=== PATIENT | male | born 1955 | race African-American/Black ===

== ENCOUNTER 2018-07-08 21:17 | Emergency (ER) | payer OTHER ==
[~2018-07-08] VITALS: Ht 180.3 cm; Wt 100.0 kg
[2018-07-08] MEDS ORDERED: SODIUM CHLORIDE 0.9% 1,000ML IVBOLUS ONE (21:30)
[2018-07-08] MEDS ORDERED: SODIUM CHLORIDE FLUSH 10ML SYR IVF ONE (21:30)
[2018-07-08 21:51] LABS: BASOPHILS # (AUTO) 0.03 x10^3/uL (0-0.1); BASOPHILS % (AUTO) 1 % (0-1); EOSINOPHILS # (AUTO) 0.12 x10^3/uL (0-0.4); EOSINOPHILS % (AUTO) 3 % (1-7); LYMPHOCYTES % (AUTO) 47 % (22-44); MD NO; MEAN CORPUSCULAR HEMOGLOBIN 28.7 pg (27.5-34.5); MEAN CORPUSCULAR HGB CONC 32.8 g/dL (33.2-36.2); MEAN CORPUSCULAR VOLUME 87.4 fL (81-97); MEAN PLATELET VOLUME 9.9 fL (7.4-10.4); MONOCYTES % (AUTO) 12 % (2-9); NEUTROPHILS # (AUTO) 1.49 x10^3/uL (1.8-6.8); NEUTROPHILS % (AUTO) 37 % (42-75); PLATELET COUNT 154 x10^3/uL (130-400); RED BLOOD COUNT 5.23 x10^6/uL (4.38-5.82); RED CELL DISTRIBUTION WIDTH 14.4 % (9.4-14.8)
[2018-07-08] MEDS ORDERED: PLEASE ENTER ALLERGIES MC SCH (22:00)
[2018-07-08] MEDS ORDERED: PLEASE ENTER HEIGHT AND WEIGHT MC SCH (22:00)
[2018-07-08 22:01] LABS: ALANINE AMINOTRANSFERASE 19 U/L (12-78); ALBUMIN 3.1 g/dL (3.4-5.0); ANION GAP 5 mmol/L (5-15); CALCIUM 8.1 mg/dL (8.5-10.1); CHLORIDE 108 mmol/L (98-107)
[2018-07-08 22:06] LABS: ALKALINE PHOSPHATASE 67 U/L (45-117); BILIRUBIN,TOTAL 0.8 mg/dL (0.2-1.0); CREATININE 1.16 mg/dL (0.7-1.3); T4 (THYROXINE) 12.5 mcg/dL (4.5-12.1); TROPONIN I < 0.015 ng/mL (0.000-0.045)
[2018-07-08 22:57] VITALS: BP 118/91
[2018-07-08 22:59] LABS: MICROSCOPIC NOT IND
[2018-07-08 23:05] LABS: CULTURE INDICATED? NO
== END 2018-07-08 23:03 | disposition home or self-care (01) ==
LOC: ED 21:26
DX: I95.0 Idiopathic hypotension (principal); R53.1 Weakness; Z02.89 Encounter for other administrative examinations
CPT/HCPCS: 36415; 71045; 80053; 81003; 83735; 83880; 84436; 84443; 84484; 85025; 93005; 99285

== ENCOUNTER 2018-07-13 01:41 | Inpatient (IN) | payer OTHER ==
[~2018-07-13] VITALS: Ht 177.8 cm; Wt 105.1 kg
[2018-07-13] MEDS ORDERED: SODIUM CHLORIDE FLUSH 10ML SYR IVF ONE (02:30)
[2018-07-13] MEDS ORDERED: SODIUM CHLORIDE 0.9% 1,000ML IVBOLUS ONE (02:30)
[2018-07-13 02:35] LABS: BASOPHILS # (AUTO) 0.02 x10^3/uL (0-0.1); BASOPHILS % (AUTO) 0 % (0-1); EOSINOPHILS # (AUTO) 0.12 x10^3/uL (0-0.4); EOSINOPHILS % (AUTO) 3 % (1-7); LYMPHOCYTES # (AUTO) 1.93 x10^3/uL (1-3.4); LYMPHOCYTES % (AUTO) 41 % (22-44); MD NO; MEAN CORPUSCULAR HGB CONC 32.3 g/dL (33.2-36.2); MEAN CORPUSCULAR VOLUME 86.5 fL (81-97); MEAN PLATELET VOLUME 10.8 fL (7.4-10.4); MONOCYTES # (AUTO) 0.42 x10^3/uL (0.2-0.8); MONOCYTES % (AUTO) 9 % (2-9); NEUTROPHILS # (AUTO) 2.23 x10^3/uL (1.8-6.8); NEUTROPHILS % (AUTO) 47 % (42-75); PLATELET COUNT 195 x10^3/uL (130-400); RED BLOOD COUNT 5.42 x10^6/uL (4.38-5.82); RED CELL DISTRIBUTION WIDTH 14.3 % (9.4-14.8)
[2018-07-13 02:41] LABS: ALANINE AMINOTRANSFERASE 22 U/L (12-78); ALBUMIN 3.3 g/dL (3.4-5.0); ANION GAP 10 mmol/L (5-15); CALCIUM 8.5 mg/dL (8.5-10.1); CHLORIDE 107 mmol/L (98-107); CREATININE 1.18 mg/dL (0.7-1.3)
[2018-07-13 02:45] LABS: ALKALINE PHOSPHATASE 72 U/L (45-117); BILIRUBIN,TOTAL 0.6 mg/dL (0.2-1.0); T4 (THYROXINE) 13.4 mcg/dL (4.5-12.1); TOTAL PROTEIN 7.4 g/dL (6.4-8.2); TROPONIN I < 0.015 ng/mL (0.000-0.045)
[2018-07-13 02:51] LABS: INTERNATIONAL NORMALIZED RATIO 1.04 (0.93-1.1); PROTHROMBIN TIME 10.7 Seconds (9.6-11.5)
[2018-07-13 03:53] LABS: MICROSCOPIC NOT IND
[2018-07-13 03:55] LABS: CULTURE INDICATED? NO
[2018-07-13] MEDS ORDERED: POLYETHYLENE GLYCOL 17 GM PACKET PO PRN (04:00)
[2018-07-13] MEDS ORDERED: AMLO2.5T PO (04:45)
[2018-07-13] MEDS ORDERED: SERT25TA3 PO (04:45)
[2018-07-13] MEDS ORDERED: NPH,100V5 SQ-INSULIN ×2 (04:45)
[2018-07-13] MEDS ORDERED: [UNRECOGNIZED DRUG - CODE] EXT (04:45)
[2018-07-13] MEDS ORDERED: CHLO50TA6 PO (04:45)
[2018-07-13] MEDS ORDERED: LOSA25TA5 PO (04:45)
[2018-07-13 05:03] VITALS: BP_SYST 106; BP_SYST 107; BP_SYST 143; BP_DIAS 70; BP_DIAS 71; BP_DIAS 92
[2018-07-13] MEDS: SODIUM CHLORIDE 0.9% 1,000 ML IV SCH ×2 (05:43→16:14)
[2018-07-13] MEDS: ACETAMINOPHEN 325 MG TABLET PO PRN (05:51)
[2018-07-13 08:08] VITALS: BP 152/97
[2018-07-13 08:27] VITALS: BP 141/89
[2018-07-13 08:29] VITALS: BP_SYST 106; BP_SYST 109; BP_DIAS 73; BP_DIAS 76
[2018-07-13] MEDS ORDERED: VITS A & D OINT 5 GM PKT EXT PRN (11:30)
[2018-07-13] MEDS: SERTRALINE 50MG TABLET PO SCH (11:58)
[2018-07-13] MEDS: INSULIN LISPRO 100 UNITS/ML, PEN SQ-INSULIN SCH ×3 (12:12→20:11)
[2018-07-13] MEDS: INSULIN NPH HUMAN 100 UNIT/ML, 3ML VIAL SQ-INSULIN SCH ×2 (12:13→20:10)
[2018-07-13 12:55] LABS: FREE T4 (FREE THYROXINE) 1.23 ng/dL (0.76-1.46)
[2018-07-13 14:30] VITALS: BP 153/98
[2018-07-13 18:49] VITALS: BP 152/88
[2018-07-14] VITALS (9 sets, daily range): BP systolic 112–174; BP diastolic 76–110
[2018-07-14] MEDS: SODIUM CHLORIDE 0.9% 1,000 ML IV SCH ×2 (01:43→11:57)
[2018-07-14] MEDS: INSULIN LISPRO 100 UNITS/ML, PEN SQ-INSULIN SCH ×4 (07:00→20:16)
[2018-07-14] MEDS: SERTRALINE 50MG TABLET PO SCH (08:22)
[2018-07-14] MEDS: INSULIN NPH HUMAN 100 UNIT/ML, 3ML VIAL SQ-INSULIN SCH ×2 (08:22→20:16)
[2018-07-14] MEDS ORDERED: PANT20TA3 PO (09:14)
[2018-07-14] MEDS ORDERED: ERGOCALCIFEROL 50,000 UNIT CAPSULE PO SCH (12:30)
[2018-07-14] MEDS ORDERED: LOSARTAN 25MG TABLET PO SCH (12:30)
[2018-07-14] MEDS: FUROSEMIDE 20 MG TABLET PO SCH (12:44)
[2018-07-14] MEDS: ACETAMINOPHEN 325 MG TABLET PO PRN (12:46)
[2018-07-14] MEDS ORDERED: NITROGLYCERIN 0.4 MG BOTTLE (25 TABS) SL ONE (19:50)
[2018-07-14] MEDS ORDERED: NITROGLYCERIN 0.4 MG/SPRAY SL PRN (20:00)
[2018-07-14] MEDS ORDERED: NITROGLYCERIN 0.4 MG BOTTLE (25 TABS) SL PRN (20:00)
[2018-07-14] MEDS: CARVEDILOL 3.125 MG TABLET PO SCH (20:35)
[2018-07-14 21:07] LABS: TROPONIN I < 0.015 ng/mL (0.000-0.045)
[2018-07-15] VITALS (8 sets, daily range): BP systolic 100–167; BP diastolic 71–103
[2018-07-15] MEDS: CARVEDILOL 3.125 MG TABLET PO SCH (05:08)
[2018-07-15 05:24] LABS: ANION GAP 8 mmol/L (5-15); CALCIUM 8.2 mg/dL (8.5-10.1); CHLORIDE 105 mmol/L (98-107); CREATININE 0.91 mg/dL (0.7-1.3)
[2018-07-15] MEDS: ACETAMINOPHEN 325 MG TABLET PO PRN (06:26)
[2018-07-15] MEDS ORDERED: PANTOPRAZOLE 20MG TABLET PO SCH (07:30)
[2018-07-15] MEDS: INSULIN NPH HUMAN 100 UNIT/ML, 3ML VIAL SQ-INSULIN SCH (08:08)
[2018-07-15] MEDS: INSULIN LISPRO 100 UNITS/ML, PEN SQ-INSULIN SCH ×2 (08:08→12:07)
[2018-07-15] MEDS ORDERED: LOSARTAN 25MG TABLET ONE (08:36)
[2018-07-15] MEDS: FUROSEMIDE 20 MG TABLET PO SCH (08:39)
[2018-07-15] MEDS: SERTRALINE 50MG TABLET PO SCH (08:39)
[2018-07-15] MEDS ORDERED: LOSARTAN 25MG TABLET PO SCH (09:00)
[2018-07-15] MEDS ORDERED: CARV3.1212 PO (11:19)
[2018-07-15] MEDS ORDERED: FURO20TA3 PO (11:19)
[2018-07-15] MEDS ORDERED: NITR0.4T SL (11:19)
[2018-07-15] MEDS ORDERED: SERT50TA5 PO (11:19)
[2018-07-15] MEDS ORDERED: NPH,100V SQ-INSULIN ×2 (11:19)
[2018-07-15] MEDS ORDERED: NITR12SP2 SL (11:19)
[2018-07-15] MEDS ORDERED: PANT20TA3 PO (11:19)
[2018-07-15] MEDS ORDERED: ERGO500017 PO (11:19)
[2018-07-15] MEDS ORDERED: INSU100I11 SQ-INSULIN (11:19)
[2018-07-15] MEDS ORDERED: LOSA25TA2 PO (11:19)
[2018-07-15] MEDS ORDERED: POTA20TA6 PO (11:22)
== END 2018-07-15 15:35 | disposition home or self-care (01) | DRG 312 ==
LOC: ED 01:48 → UNDOADMIN 03:34 → EDIP 03:34 → 5SO 05:17
PROVIDERS: ADMIT Hospitalist; ATTEND Hospitalist
DX: R55 Syncope and collapse (principal); E11.9 Type 2 diabetes mellitus without complications; I11.0 Hypertensive heart disease with heart failure; I25.10 Atherosclerotic heart disease of native coronary artery without angina pectoris; R32 Unspecified urinary incontinence; S06.0X0A Concussion without loss of consciousness, initial encounter; X58.XXXA Exposure to other specified factors, initial encounter; Y93.89 Activity, other specified; Y92.89 Other specified places as the place of occurrence of the external cause; Y99.8 Other external cause status; Z83.3 Family history of diabetes mellitus; Z95.0 Presence of cardiac pacemaker; I50.9 Heart failure, unspecified; Z88.8 Allergy status to other drugs, medicaments and biological substances
CPT/HCPCS: 36415; 70450; 71045; 72125; 80048; 80053; 81003; 82306; 82533; 82607; 82962; 83735; 83880; 84436; 84439; 84443; 84481; 84484; 85025; 85610; 85730; 87040; 93005; 93306; 96360; 96361; 99285; J1815; J7030

== ENCOUNTER 2018-07-25 02:31 | Emergency (ER) | payer MEDICARE, OTHER ==
[~2018-07-25] VITALS: Ht 177.8 cm; Wt 101.8 kg
[~2018-07-25 02:31] MED LIST: AMLO2.5T3 PO; CARV3.1212 PO; CHLO50TA6 PO; ERGO500017 PO; FURO20TA3 PO; INSU100I11 SQ-INSULIN; LOSA25TA2 PO; LOSA25TA6 PO; NITR0.4T SL; NITR12SP2 SL; NPH,100V SQ-INSULIN; NPH,100V5 SQ-INSULIN; PANT20TA3 PO; POTA20TA6 PO; SERT25TA3 PO; SERT50TA5 PO; [UNRECOGNIZED DRUG - CODE] EXT
[2018-07-25] MEDS ORDERED: FAMOTIDINE 20 MG TABLET ONE (02:52)
[2018-07-25] MEDS ORDERED: MAALOX/HYOSCYAMINE/LIDOCAINE 45 ML BTL ONE (02:52)
[2018-07-25] MEDS ORDERED: PROMETHAZINE 25 MG/ML, 1ML ONE (02:52)
[2018-07-25] MEDS ORDERED: FAMOTIDINE 20 MG TABLET PO ONE (03:00)
[2018-07-25] MEDS ORDERED: MAALOX/HYOSCYAMINE/LIDOCAINE 45 ML BTL PO ONE (03:00)
[2018-07-25] MEDS ORDERED: PROMETHAZINE 25 MG/ML, 1ML IM ONE (03:00)
[2018-07-25 04:07] VITALS: BP 129/78
== END 2018-07-25 04:15 | disposition home or self-care (01) ==
LOC: ED 03:15
DX: K59.00 Constipation, unspecified (principal); R06.6 Hiccough; I10 Essential (primary) hypertension; E11.9 Type 2 diabetes mellitus without complications
CPT/HCPCS: 74021; 96372; 99284; J2550

== ENCOUNTER 2018-08-13 03:59 | Emergency (ER) | payer MEDICARE ==
[~2018-08-13] VITALS: Ht 177.8 cm; Wt 100.5 kg
[2018-08-13] MEDS ORDERED: MAALOX/HYOSCYAMINE/LIDOCAINE 45 ML BTL ONE (04:41)
[2018-08-13] MEDS ORDERED: MAALOX/HYOSCYAMINE/LIDOCAINE 45 ML BTL PO ONE (05:00)
[2018-08-13] MEDS ORDERED: DIAZEPAM 5 MG TABLET ONE (06:04)
[2018-08-13] MEDS ORDERED: DIAZEPAM 5 MG TABLET PO ONE (06:30)
[2018-08-13 06:54] VITALS: BP 156/97
== END 2018-08-13 08:13 | disposition home or self-care (01) ==
LOC: ED 05:00
DX: R06.6 Hiccough (principal); E11.9 Type 2 diabetes mellitus without complications; I10 Essential (primary) hypertension
CPT/HCPCS: 93005; 99284

== ENCOUNTER 2018-10-18 10:59 | Emergency (ER) | payer MEDICARE ==
[~2018-10-18] VITALS: Ht 177.8 cm; Wt 98.7 kg
[2018-10-18] MEDS ORDERED: MAALOX/HYOSCYAMINE/LIDOCAINE 45 ML BTL ONE (11:48)
[2018-10-18] MEDS ORDERED: MAALOX/HYOSCYAMINE/LIDOCAINE 45 ML BTL PO ONE (12:00)
[2018-10-18] MEDS ORDERED: chlorPROMAZINE 25 MG/ML, 1ML IM ONE (12:00)
[2018-10-18 12:17] LABS: BASOPHILS # (AUTO) 0.17 x10^3/uL (0-0.1); BASOPHILS % (AUTO) 4 % (0-1); EOSINOPHILS # (AUTO) 0.03 x10^3/uL (0-0.4); EOSINOPHILS % (AUTO) 1 % (1-7); LYMPHOCYTES # (AUTO) 2.02 x10^3/uL (1-3.4); LYMPHOCYTES % (AUTO) 42 % (22-44); MD NO; MEAN CORPUSCULAR HGB CONC 32.6 g/dL (33.2-36.2); MONOCYTES % (AUTO) 17 % (2-9); NEUTROPHILS # (AUTO) 1.77 x10^3/uL (1.8-6.8); NEUTROPHILS % (AUTO) 37 % (42-75); PLATELET COUNT 202 x10^3/uL (130-400); RED BLOOD COUNT 5.15 x10^6/uL (4.38-5.82); RED CELL DISTRIBUTION WIDTH 14.4 % (9.4-14.8)
[2018-10-18 12:28] LABS: ANION GAP 9 mmol/L (5-15); CALCIUM 7.6 mg/dL (8.5-10.1); CHLORIDE 104 mmol/L (98-107)
[2018-10-18 12:31] LABS: ALANINE AMINOTRANSFERASE 21 U/L (12-78); ALKALINE PHOSPHATASE 87 U/L (45-117); BILIRUBIN,TOTAL 0.7 mg/dL (0.2-1.0); TOTAL PROTEIN 7.6 g/dL (6.4-8.2)
[2018-10-18 14:16] VITALS: BP 148/93
== END 2018-10-18 14:29 | disposition home or self-care (01) ==
LOC: ED 12:48
DX: R06.6 Hiccough (principal); E11.9 Type 2 diabetes mellitus without complications; I10 Essential (primary) hypertension
CPT/HCPCS: 36415; 74176; 80053; 85025; 96372; 99284; J3230

== ENCOUNTER 2018-12-20 07:47 | Inpatient (IN) | payer OTHER, MEDICARE ==
[~2018-12-20] VITALS: Ht 180.3 cm; Wt 98.8 kg
[~2018-12-20 07:47] MED LIST changes: -AMLO2.5T3 PO; +AMLO2.5T5 PO; +LOSA25TA25 PO; -LOSA25TA6 PO; +SERT50TA28 PO; -SERT50TA5 PO
[2018-12-20] MEDS ORDERED: AMIODARONE 900 MG in DEXTROSE 5% 482 ML IV PRN (07:49)
--- NOTE | 2018-12-20 07:49 | NUR ---
AMIODARONE 150MG IVP GIVEN EMERGENTLY AT THE BEDSIDE ORDER OF DR. XIONG FOR V.TACH.
[2018-12-20] MEDS ORDERED: SODIUM CHLORIDE FLUSH 10ML SYR IVF ONE ×2 (08:00→09:30)
[2018-12-20] MEDS ORDERED: AMIODARONE 50 MG/ML, 3ML IVPush ONE ×2 (08:00→09:30)
[2018-12-20] MEDS ORDERED: AMIODARONE 150 MG in DEXTROSE 5% 100 ML IV ONE ×2 (08:00→09:30)
[2018-12-20] MEDS ORDERED: MAGNESIUM SULFATE PMX 2GM/50ML 50 ML IVPB ONE (08:00)
[2018-12-20] MEDS ORDERED: FILTER 0.22 MICRON IV PRN (08:00)
[2018-12-20 08:02] LABS: BASOPHILS # (AUTO) 0.04 x10^3/uL (0-0.1); BASOPHILS % (AUTO) 1 % (0-1); EOSINOPHILS # (AUTO) 0.19 x10^3/uL (0-0.4); EOSINOPHILS % (AUTO) 3 % (1-7); LYMPHOCYTES # (AUTO) 3.34 x10^3/uL (1-3.4); LYMPHOCYTES % (AUTO) 51 % (22-44); MD NO; MEAN CORPUSCULAR HEMOGLOBIN 27.1 pg (27.5-34.5); MEAN CORPUSCULAR HGB CONC 31.9 g/dL (33.2-36.2); MEAN CORPUSCULAR VOLUME 85.1 fL (81-97); MEAN PLATELET VOLUME 10.2 fL (7.4-10.4); MONOCYTES # (AUTO) 0.69 x10^3/uL (0.2-0.8); MONOCYTES % (AUTO) 11 % (2-9); NEUTROPHILS # (AUTO) 2.27 x10^3/uL (1.8-6.8); NEUTROPHILS % (AUTO) 35 % (42-75); PLATELET COUNT 157 x10^3/uL (130-400); RED BLOOD COUNT 6.12 x10^6/uL (4.38-5.82); RED CELL DISTRIBUTION WIDTH 13.6 % (9.4-14.8)
--- NOTE | 2018-12-20 08:02 | NUR ---
MAGNESIUM SULFATE DRIP STARTED IN LEFT EJ.
[2018-12-20 08:09] LABS: INTERNATIONAL NORMALIZED RATIO 1.08 (0.93-1.1); PROTHROMBIN TIME 11.4 Seconds (9.6-11.5)
[2018-12-20 08:11] LABS: ALANINE AMINOTRANSFERASE 21 U/L (12-78); ALBUMIN 3.6 g/dL (3.4-5.0); ANION GAP 8 mmol/L (5-15); CALCIUM 9.4 mg/dL (8.5-10.1); CHLORIDE 99 mmol/L (98-107); CREATININE 1.65 mg/dL (0.7-1.3)
[2018-12-20 08:16] LABS: ALKALINE PHOSPHATASE 87 U/L (45-117); BILIRUBIN,TOTAL 0.9 mg/dL (0.2-1.0); TOTAL PROTEIN 8.6 g/dL (6.4-8.2); TROPONIN I < 0.015 ng/mL (0.000-0.045)
--- NOTE | 2018-12-20 08:20 | NUR ---
SECOND PIV STARTED. AMIODARONE DRIP STARTED.
[2018-12-20] MEDS ORDERED: ATOR10TA PO (08:50)
[2018-12-20] MEDS ORDERED: AMLO10TA8 PO (08:51)
[2018-12-20] MEDS ORDERED: GLIP2.5T3 PO (08:52)
[2018-12-20] MEDS ORDERED: HYDR25TA6 PO (08:53)
[2018-12-20] MEDS ORDERED: PANT40TA5 PO (08:54)
--- NOTE | 2018-12-20 09:04 | NUR ---
PATIENT HAD SUDDEN RHYTHM CHANGE BACK INTO V TACH. PAIENT ALERT AND ORIENTED WITH THE V TACH BUT HAS WEAKENED PULSES. PT ALSO C/O SOME CHEST PAIN WITH THIS EPISODE OF VTACH, WHICH IS THE FIRST TIME HE HAS HAD CHEST PAIN TODAY. DR. XIONG NOTIFIED. EKG TAKEN AND GIVEN TO DR. XIONG.
[2018-12-20] MEDS ORDERED: AMIODARONE 50 MG/ML, 3ML ONE (09:27)
--- NOTE | 2018-12-20 09:32 | NUR ---
ANOTHER 150MG AMIODARONE IVP GIVEN. PATIENT CONVERTED TO NSR APPROX 2 MINUTES AFTER DOSE GIVEN. WILL NOTIFY DR. XIONG UPON RETURN TO THE DEPARTMENT. VS STABLE.
--- NOTE | 2018-12-20 09:39 | NUR ---
LATEST EKG SHOWING PATIENT IN NSR GIVEN TO DR. XIONG.
--- NOTE | 2018-12-20 09:44 | NUR ---
2GM MAG SULFATE INFUSION COMPLETE. PATIENT RESTING WITH NO COMPLAINTS AND REMAINS IN NSR. DEPUTIES AT BEDSIDE. CALL BUTTON WITHIN REACH. SIDE RAILS UP X2 FOR SAFETY.
[2018-12-20] MEDS ORDERED: ONDANSETRON ODT 4 MG PO PRN (10:00)
[2018-12-20] MEDS ORDERED: morphine SULFATE 10 MG/ML, 1ML IVPush PRN (10:00)
[2018-12-20] MEDS ORDERED: LABETALOL 5MG/ML, 20ML IV PRN (10:00)
[2018-12-20] MEDS ORDERED: DOCUSATE 100 MG CAPSULE PO PRN (10:00)
[2018-12-20] MEDS ORDERED: POLYETHYLENE GLYCOL 17 GM PACKET PO PRN (10:00)
[2018-12-20] MEDS ORDERED: ONDANSETRON 2MG/ML, 2ML IVPush PRN (10:00)
--- NOTE | 2018-12-20 10:09 | NUR ---
SBAR TELEPHONE HAND-OFF REPORT GIVEN TO RN JANELL. PATIENT READY TO GO TO HOSPITAL ROOM.
[2018-12-20 10:26] LABS: CHOL/HDL RATIO 1.7; FREE T4 (FREE THYROXINE) 1.58 ng/dL (0.76-1.46); LDL/HDL RATIO 0.4 (0.5-3.0)
[2018-12-20 10:48] LABS: HEMOGLOBIN A1C 8.5 % (4.2-6.3)
[2018-12-20 11:08] VITALS: BP 131/89
[2018-12-20] MEDS ORDERED: DEXTROSE 4 GM TAB.CHEW PO PRN (11:30)
[2018-12-20] MEDS ORDERED: DEXTROSE 50%, 50ML SYRINGE IVPush PRN (11:30)
[2018-12-20] MEDS ORDERED: GLUCAGON 1 MG IM PRN (11:30)
[2018-12-20] MEDS: PANTOPRAZOLE 40 MG IV IVPush SCH (12:14)
[2018-12-20 12:51] VITALS: BP 142/96
[2018-12-20 12:52] VITALS: BP 142/96
[2018-12-20] MEDS: FUROSEMIDE 20 MG/2 ML IV SCH (17:24)
[2018-12-20] MEDS: INSULIN LISPRO 100 UNITS/ML, PEN SQ-INSULIN SCH ×2 (18:15→21:57)
[2018-12-20 20:22] VITALS: BP 104/71
[2018-12-20] MEDS: ENOXAPARIN 40 MG/0.4 ML SQ SCH (21:56)
[2018-12-20] MEDS: SODIUM CHLORIDE FLUSH 10ML SYR IVF SCH (21:57)
[2018-12-20] MEDS: ATORVASTATIN 10 MG TABLET PO SCH (21:57)
[2018-12-21 01:43] VITALS: BP 135/90
[2018-12-21 05:11] LABS: BASOPHILS # (AUTO) 0.02 x10^3/uL (0-0.1); BASOPHILS % (AUTO) 0 % (0-1); EOSINOPHILS # (AUTO) 0.17 x10^3/uL (0-0.4); EOSINOPHILS % (AUTO) 3 % (1-7); LYMPHOCYTES # (AUTO) 2.34 x10^3/uL (1-3.4); LYMPHOCYTES % (AUTO) 44 % (22-44); MD NO; MEAN CORPUSCULAR HEMOGLOBIN 27.8 pg (27.5-34.5); MEAN CORPUSCULAR HGB CONC 32.4 g/dL (33.2-36.2); MEAN CORPUSCULAR VOLUME 85.9 fL (81-97); MEAN PLATELET VOLUME 10.1 fL (7.4-10.4); MONOCYTES # (AUTO) 0.63 x10^3/uL (0.2-0.8); MONOCYTES % (AUTO) 12 % (2-9); NEUTROPHILS % (AUTO) 41 % (42-75); PLATELET COUNT 144 x10^3/uL (130-400); RED BLOOD COUNT 5.79 x10^6/uL (4.38-5.82); RED CELL DISTRIBUTION WIDTH 13.8 % (9.4-14.8)
[2018-12-21 05:21] LABS: ALANINE AMINOTRANSFERASE 19 U/L (12-78); ALBUMIN 3.1 g/dL (3.4-5.0); ANION GAP 7 mmol/L (5-15); CALCIUM 8.5 mg/dL (8.5-10.1); CHLORIDE 101 mmol/L (98-107); CREATININE 1.54 mg/dL (0.7-1.3)
[2018-12-21 05:31] LABS: ALKALINE PHOSPHATASE 75 U/L (45-117); BILIRUBIN,TOTAL 0.7 mg/dL (0.2-1.0); THYROID STIMULATING HORMONE 0.169 mIU/L (0.358-3.740); TOTAL PROTEIN 7.5 g/dL (6.4-8.2)
[2018-12-21] MEDS: FUROSEMIDE 20 MG/2 ML IV SCH ×2 (07:30→20:13)
[2018-12-21] MEDS ORDERED: AMIODARONE 900 MG in DEXTROSE 5% 482 ML IV PRN (07:49)
[2018-12-21] MEDS: AMLODIPINE 5 MG TABLET PO SCH (08:05)
[2018-12-21] MEDS: INSULIN LISPRO 100 UNITS/ML, PEN SQ-INSULIN SCH ×4 (08:05→21:11)
[2018-12-21] MEDS: PANTOPRAZOLE 40 MG IV IVPush SCH (08:06)
[2018-12-21] MEDS: SODIUM CHLORIDE FLUSH 10ML SYR IVF SCH ×2 (09:00→22:13)
[2018-12-21 09:08] VITALS: BP 128/90
[2018-12-21 09:29] LABS: TROPONIN I < 0.015 ng/mL (0.000-0.045)
[2018-12-21] MEDS: AMIODARONE 200 MG TABLET PO SCH ×2 (12:27→22:13)
[2018-12-21 12:41] VITALS: BP 127/86
[2018-12-21 15:17] VITALS: BP 127/86
[2018-12-21 19:10] VITALS: BP 115/74
[2018-12-21] MEDS: ATORVASTATIN 10 MG TABLET PO SCH (22:13)
[2018-12-21] MEDS: ENOXAPARIN 40 MG/0.4 ML SQ SCH (22:13)
[2018-12-22 01:01] VITALS: BP 138/91
[2018-12-22 04:56] LABS: BASOPHILS # (AUTO) 0.04 x10^3/uL (0-0.1); BASOPHILS % (AUTO) 1 % (0-1); EOSINOPHILS % (AUTO) 3 % (1-7); LYMPHOCYTES # (AUTO) 2.47 x10^3/uL (1-3.4); LYMPHOCYTES % (AUTO) 40 % (22-44); MD NO; MEAN CORPUSCULAR HEMOGLOBIN 27.8 pg (27.5-34.5); MEAN CORPUSCULAR HGB CONC 32.7 g/dL (33.2-36.2); MEAN CORPUSCULAR VOLUME 84.9 fL (81-97); MEAN PLATELET VOLUME 10.2 fL (7.4-10.4); MONOCYTES # (AUTO) 0.63 x10^3/uL (0.2-0.8); MONOCYTES % (AUTO) 10 % (2-9); NEUTROPHILS % (AUTO) 47 % (42-75); PLATELET COUNT 138 x10^3/uL (130-400); RED BLOOD COUNT 5.66 x10^6/uL (4.38-5.82); RED CELL DISTRIBUTION WIDTH 13.9 % (9.4-14.8)
[2018-12-22 05:00] LABS: ALBUMIN 3.3 g/dL (3.4-5.0); ANION GAP 7 mmol/L (5-15); CALCIUM 8.2 mg/dL (8.5-10.1); CHLORIDE 100 mmol/L (98-107)
[2018-12-22] MEDS: FUROSEMIDE 20 MG/2 ML IV SCH (08:15)
[2018-12-22] MEDS: AMLODIPINE 5 MG TABLET PO SCH (08:15)
[2018-12-22] MEDS: PANTOPROZOLE 40MG TABLET PO SCH (08:15)
[2018-12-22] MEDS: AMIODARONE 200 MG TABLET PO SCH ×2 (08:15→20:51)
[2018-12-22] MEDS: SODIUM CHLORIDE FLUSH 10ML SYR IVF SCH ×2 (08:16→20:52)
[2018-12-22] MEDS: INSULIN LISPRO 100 UNITS/ML, PEN SQ-INSULIN SCH ×5 (08:16→20:52)
[2018-12-22 08:20] VITALS: BP 116/74
[2018-12-22] MEDS ORDERED: ADENOSINE 6 MG/2 ML ONE (10:51)
[2018-12-22] MEDS ORDERED: BACLOFEN 10 MG TABLET PO PRN (11:30)
[2018-12-22] MEDS ORDERED: ADENOSINE 6 MG/2 ML IVPush ONE ×2 (11:30)
[2018-12-22] MEDS: POTASSIUM CHLORIDE 20 MEQ TAB.ER.PRT PO ONE ×2 (11:53→12:30)
[2018-12-22] MEDS: METOPROLOL SUCCINATE 25 MG TAB.ER.24H PO SCH ×2 (11:53→12:30)
[2018-12-22] MEDS: INSULIN GLARGINE 100 UNITS/ML, PEN SQ-INSULIN SCH ×2 (11:53→12:31)
[2018-12-22] MEDS ORDERED: NALOXONE 0.4 MG/ML, 1ML ONE ×2 (12:07→12:18)
[2018-12-22] MEDS ORDERED: NALOXONE 0.4 MG/ML, 1ML IVPush ONE ×2 (12:30)
[2018-12-22 12:53] LABS: BASOPHILS # (AUTO) 0.06 x10^3/uL (0-0.1); BASOPHILS % (AUTO) 2 % (0-1); EOSINOPHILS # (AUTO) 0.18 x10^3/uL (0-0.4); EOSINOPHILS % (AUTO) 5 % (1-7); LYMPHOCYTES # (AUTO) 1.86 x10^3/uL (1-3.4); LYMPHOCYTES % (AUTO) 45 % (22-44); MD NO; MEAN CORPUSCULAR HEMOGLOBIN 27.3 pg (27.5-34.5); MEAN CORPUSCULAR VOLUME 85.4 fL (81-97); MEAN PLATELET VOLUME 9.6 fL (7.4-10.4); MONOCYTES # (AUTO) 0.44 x10^3/uL (0.2-0.8); MONOCYTES % (AUTO) 11 % (2-9); NEUTROPHILS # (AUTO) 1.58 x10^3/uL (1.8-6.8); NEUTROPHILS % (AUTO) 38 % (42-75); PLATELET COUNT 124 x10^3/uL (130-400); RED BLOOD COUNT 5.19 x10^6/uL (4.38-5.82); RED CELL DISTRIBUTION WIDTH 14.1 % (9.4-14.8)
[2018-12-22] MEDS ORDERED: SODIUM CHLORIDE 0.9% 1,000ML IVBOLUS ONE (13:00)
[2018-12-22 13:09] LABS: ALANINE AMINOTRANSFERASE 15 U/L (12-78); ALBUMIN 2.8 g/dL (3.4-5.0); ANION GAP 5 mmol/L (5-15); CALCIUM 7.5 mg/dL (8.5-10.1); CHLORIDE 104 mmol/L (98-107); CREATININE 1.15 mg/dL (0.7-1.3)
[2018-12-22 13:14] LABS: ALKALINE PHOSPHATASE 65 U/L (45-117); BILIRUBIN,TOTAL 0.4 mg/dL (0.2-1.0); TOTAL PROTEIN 6.5 g/dL (6.4-8.2); TROPONIN I < 0.015 ng/mL (0.000-0.045)
[2018-12-22 14:50] VITALS: BP 116/79
[2018-12-22] MEDS ORDERED: POTASSIUM CHLORIDE 20 MEQ TAB.ER.PRT PO ONE ×2 (15:00→19:00)
[2018-12-22 16:39] VITALS: BP 113/82
[2018-12-22 18:53] VITALS: BP 103/69
[2018-12-22] MEDS: ATORVASTATIN 10 MG TABLET PO SCH (20:51)
[2018-12-22] MEDS: ENOXAPARIN 40 MG/0.4 ML SQ SCH (20:52)
[2018-12-23 01:13] VITALS: BP 115/71
[2018-12-23 03:50] LABS: AMPHETAMINE SCREEN, URINE Negative (Negative); BARBITURATE SCREEN, URINE Negative (Negative); BENZODIAZEPINE SCREEN, URINE Negative (Negative); CANNABINOID SCREEN, URINE Negative (Negative); COCAINE SCREEN, URINE Negative (Negative); METHADONE SCREEN, URINE Negative (Negative); OPIATE SCREEN, URINE Negative (Negative)
[2018-12-23 05:02] VITALS: BP 90/65
[2018-12-23 05:14] LABS: BASOPHILS # (AUTO) 0.02 x10^3/uL (0-0.1); BASOPHILS % (AUTO) 0 % (0-1); EOSINOPHILS # (AUTO) 0.19 x10^3/uL (0-0.4); EOSINOPHILS % (AUTO) 4 % (1-7); LYMPHOCYTES # (AUTO) 1.81 x10^3/uL (1-3.4); LYMPHOCYTES % (AUTO) 41 % (22-44); MD NO; MEAN CORPUSCULAR HGB CONC 32.9 g/dL (33.2-36.2); MEAN CORPUSCULAR VOLUME 85.3 fL (81-97); MEAN PLATELET VOLUME 10.4 fL (7.4-10.4); MONOCYTES # (AUTO) 0.51 x10^3/uL (0.2-0.8); MONOCYTES % (AUTO) 12 % (2-9); NEUTROPHILS # (AUTO) 1.85 x10^3/uL (1.8-6.8); NEUTROPHILS % (AUTO) 42 % (42-75); PLATELET COUNT 136 x10^3/uL (130-400); RED BLOOD COUNT 5.12 x10^6/uL (4.38-5.82); RED CELL DISTRIBUTION WIDTH 13.9 % (9.4-14.8)
[2018-12-23 05:18] LABS: ALANINE AMINOTRANSFERASE 17 U/L (12-78); ALBUMIN 2.9 g/dL (3.4-5.0); ANION GAP 6 mmol/L (5-15); CALCIUM 8.4 mg/dL (8.5-10.1); CHLORIDE 107 mmol/L (98-107); CREATININE 1.16 mg/dL (0.7-1.3)
[2018-12-23 05:20] LABS: ALKALINE PHOSPHATASE 69 U/L (45-117); BILIRUBIN,TOTAL 0.4 mg/dL (0.2-1.0); TOTAL PROTEIN 6.7 g/dL (6.4-8.2)
[2018-12-23] MEDS: INSULIN LISPRO 100 UNITS/ML, PEN SQ-INSULIN SCH ×3 (07:00→16:00)
[2018-12-23 07:01] VITALS: BP 119/82
[2018-12-23] MEDS: PANTOPROZOLE 40MG TABLET PO SCH (08:43)
[2018-12-23] MEDS: AMIODARONE 200 MG TABLET PO SCH (08:43)
[2018-12-23] MEDS: METOPROLOL SUCCINATE 25 MG TAB.ER.24H PO SCH (08:44)
[2018-12-23] MEDS: INSULIN GLARGINE 100 UNITS/ML, PEN SQ-INSULIN SCH (08:45)
[2018-12-23] MEDS: SODIUM CHLORIDE FLUSH 10ML SYR IVF SCH (08:45)
[2018-12-23] MEDS ORDERED: LOSARTAN 25MG TABLET PO SCH (09:00)
[2018-12-23] MEDS ORDERED: FUROSEMIDE 40 MG TABLET PO SCH (09:00)
[2018-12-23] MEDS ORDERED: SPIRONOLACTONE 25 MG TABLET PO SCH (09:00)
[2018-12-23 12:43] VITALS: BP 122/86
[2018-12-23] MEDS ORDERED: METO25TA91 PO (16:29)
[2018-12-23] MEDS ORDERED: SPIR25TA PO (16:29)
[2018-12-23] MEDS ORDERED: PANT40TA5 PO (16:29)
[2018-12-23] MEDS ORDERED: AMIO200T42 PO (16:29)
[2018-12-23] MEDS ORDERED: LOSA25TA25 PO (16:29)
[2018-12-23] MEDS ORDERED: FURO40TA6 PO (16:29)
== END 2018-12-23 18:40 | disposition home or self-care (01) | DRG 683 ==
LOC: ED 08:05 → EDIP 09:15 → 5SO 10:21
PROVIDERS: ADMIT Internal Medicine; ATTEND Internal Medicine
DX: N17.9 Acute kidney failure, unspecified (principal); I42.9 Cardiomyopathy, unspecified; I47.2 Ventricular tachycardia; I50.20 Unspecified systolic (congestive) heart failure; I47.1 Supraventricular tachycardia; I11.0 Hypertensive heart disease with heart failure; E78.5 Hyperlipidemia, unspecified; E11.9 Type 2 diabetes mellitus without complications; R06.6 Hiccough; E55.9 Vitamin D deficiency, unspecified; I25.10 Atherosclerotic heart disease of native coronary artery without angina pectoris; F10.20 Alcohol dependence, uncomplicated; I95.9 Hypotension, unspecified; I25.2 Old myocardial infarction; Z95.810 Presence of automatic (implantable) cardiac defibrillator; Z82.49 Family history of ischemic heart disease and other diseases of the circulatory system; Z86.73 Personal history of transient ischemic attack (TIA), and cerebral infarction without residual deficits; Z87.891 Personal history of nicotine dependence; Z88.6 Allergy status to analgesic agent
CPT/HCPCS: 36415; 36600; 70450; 71045; 76770; 80048; 80053; 80061; 80307; 82040; 82803; 82962; 83036; 83735; 83880; 84100; 84439; 84443; 84484; 85025; 85610; 85730; 93005; 96374; 99291; C8929; G0378; J0153; J1650; J2310; Q9957; C9113; J0282; J1815; J1940; J3475; J7030; J7060

== ENCOUNTER 2019-01-09 03:25 | Emergency (ER) | payer MEDICARE, OTHER ==
[~2019-01-09 03:25] MED LIST changes: +AMIO200T42 PO; +AMLO10TA8 PO; +ATOR10TA PO; +FURO40TA6 PO; +GLIP2.5T3 PO; +HYDR25TA6 PO; +METO25TA91 PO; +PANT40TA5 PO; +SPIR25TA PO
[2019-01-09] MEDS ORDERED: ASPIRIN 81 MG TABLET CHEW ONE (03:54)
[2019-01-09] MEDS ORDERED: MAALOX/HYOSCYAMINE/LIDOCAINE 45 ML BTL ONE (03:54)
[2019-01-09] MEDS ORDERED: ONDANSETRON ODT 4 MG ONE (03:54)
--- NOTE | 2019-01-09 04:16 | NUR ---
SEE DOWNTIME PAPER CHARTING.
[2019-01-09 04:39] LABS: BASOPHILS # (AUTO) 0.02 x10^3/uL (0-0.1); BASOPHILS % (AUTO) 1 % (0-1); EOSINOPHILS # (AUTO) 0.15 x10^3/uL (0-0.4); EOSINOPHILS % (AUTO) 3 % (1-7); LYMPHOCYTES # (AUTO) 1.57 x10^3/uL (1-3.4); LYMPHOCYTES % (AUTO) 33 % (22-44); MD NO; MEAN CORPUSCULAR HEMOGLOBIN 27.8 pg (27.5-34.5); MEAN CORPUSCULAR HGB CONC 32.5 g/dL (33.2-36.2); MEAN CORPUSCULAR VOLUME 85.7 fL (81-97); MEAN PLATELET VOLUME 8.8 fL (7.4-10.4); MONOCYTES % (AUTO) 11 % (2-9); NEUTROPHILS # (AUTO) 2.46 x10^3/uL (1.8-6.8); NEUTROPHILS % (AUTO) 52 % (42-75); PLATELET COUNT 199 x10^3/uL (130-400); RED CELL DISTRIBUTION WIDTH 14.2 % (9.4-14.8)
[2019-01-09 04:49] LABS: ANION GAP 7 mmol/L (5-15); CALCIUM 8.2 mg/dL (8.5-10.1); CHLORIDE 104 mmol/L (98-107); CREATININE 0.93 mg/dL (0.7-1.3)
[2019-01-09 04:53] LABS: TROPONIN I < 0.015 ng/mL (0.000-0.045)
[2019-01-09 05:19] VITALS: BP 149/104
--- NOTE | 2019-01-09 05:21 | NUR ---
PT GIVEN DC INSTRUCTIONS. PT AMB TO DC SITH STEADY GAIT. NO CP AT DC. NO ACUTE DISTRESS AT DC. TAXIVOUCHER GIVEN TO DC.
== END 2019-01-09 05:26 | disposition home or self-care (01) ==
LOC: ED 05:15
DX: R07.9 Chest pain, unspecified (principal); I25.10 Atherosclerotic heart disease of native coronary artery without angina pectoris; I11.0 Hypertensive heart disease with heart failure; I50.9 Heart failure, unspecified; E11.9 Type 2 diabetes mellitus without complications
CPT/HCPCS: 36415; 71045; 80048; 83880; 84484; 85025; 93005; 99284

== ENCOUNTER 2019-01-20 07:22 | Inpatient (IN) | payer MEDICARE, OTHER ==
[~2019-01-20] VITALS: Ht 180.3 cm; Wt 99.9 kg
[2019-01-20] MEDS ORDERED: ADENOSINE 6 MG/2 ML ONE (07:50)
--- NOTE | 2019-01-20 07:50 | NUR ---
Recieved report from BOWEN Coats. All questions answered. Pt placed on flight engineer performance qualified, NIBP, and continous pulse ox. PIV placed and PIV fluids infusing per ED MD verbal order and EMAR. career development specialist at bedside. Pt connected to [employer].
--- NOTE | 2019-01-20 07:52 | NUR ---
PIV meds infused per ED MD order and EMAR. Pt's heart rate is in the 90-95 bpm range and pt's pacemaker has taken over pacing heart rate. client technical professional at bedside doing repeat EKG. PIV fluids infusing per EMAR.
[2019-01-20] MEDS ORDERED: ADENOSINE 6 MG/2 ML IVPush ONE (08:00)
[2019-01-20] MEDS ORDERED: ASPIRIN 81 MG TABLET CHEW PO ONE (08:00)
[2019-01-20] MEDS ORDERED: SODIUM CHLORIDE 0.9% 1,000ML IVBOLUS ONE (08:00)
[2019-01-20] MEDS ORDERED: SODIUM CHLORIDE FLUSH 10ML SYR IVF ONE (08:00)
[2019-01-20] MEDS ORDERED: ASPIRIN 81 MG TABLET CHEW ONE (08:06)
[2019-01-20 08:46] LABS: ALBUMIN 3.1 g/dL (3.4-5.0); ANION GAP 8 mmol/L (5-15); CALCIUM 8.3 mg/dL (8.5-10.1); CHLORIDE 109 mmol/L (98-107)
[2019-01-20 08:49] LABS: TROPONIN I < 0.015 ng/mL (0.000-0.045)
[2019-01-20 08:55] LABS: BASOPHILS # (AUTO) 0.01 x10^3/uL (0-0.1); BASOPHILS % (AUTO) 0 % (0-1); EOSINOPHILS # (AUTO) 0.15 x10^3/uL (0-0.4); EOSINOPHILS % (AUTO) 4 % (1-7); LYMPHOCYTES # (AUTO) 1.61 x10^3/uL (1-3.4); LYMPHOCYTES % (AUTO) 39 % (22-44); MD NO; MEAN CORPUSCULAR HEMOGLOBIN 27.4 pg (27.5-34.5); MEAN CORPUSCULAR HGB CONC 32.2 g/dL (33.2-36.2); MEAN CORPUSCULAR VOLUME 85.1 fL (81-97); MEAN PLATELET VOLUME 8.6 fL (7.4-10.4); MONOCYTES # (AUTO) 0.46 x10^3/uL (0.2-0.8); MONOCYTES % (AUTO) 11 % (2-9); NEUTROPHILS # (AUTO) 1.88 x10^3/uL (1.8-6.8); NEUTROPHILS % (AUTO) 46 % (42-75); PLATELET COUNT 244 x10^3/uL (130-400); RED BLOOD COUNT 5.39 x10^6/uL (4.38-5.82); RED CELL DISTRIBUTION WIDTH 14.6 % (9.4-14.8)
[2019-01-20] MEDS ORDERED: LABETALOL 5 MG/ML SYRINGE IVPush PRN (10:00)
[2019-01-20] MEDS ORDERED: PANTOPRAZOLE 40 MG IV IVPush SCH (10:00)
[2019-01-20] MEDS ORDERED: ONDANSETRON 2MG/ML, 2ML IVPush PRN (10:00)
[2019-01-20] MEDS ORDERED: POLYETHYLENE GLYCOL 17 GM PACKET PO PRN (10:00)
[2019-01-20] MEDS ORDERED: ONDANSETRON ODT 4 MG PO PRN (10:00)
[2019-01-20] MEDS ORDERED: GLIP2.5T3 PO (10:12)
[2019-01-20] MEDS ORDERED: AMLO10TA8 PO (10:12)
[2019-01-20] MEDS ORDERED: ASPI-496 PO (10:12)
[2019-01-20] MEDS ORDERED: LOSA50TA14 PO (10:12)
--- NOTE | 2019-01-20 10:19 | NUR ---
Pt resting on gurney connected to all monitors. NADN. No needs expressed. All safety measures in place. Call light within reach.
[2019-01-20] MEDS ORDERED: GLUCAGON 1 MG IM PRN (10:30)
[2019-01-20] MEDS ORDERED: DEXTROSE 4 GM TAB.CHEW PO PRN (10:30)
[2019-01-20] MEDS ORDERED: DEXTROSE 50%, 50ML SYRINGE IVPush PRN (10:30)
[2019-01-20] MEDS: INSULIN GLARGINE 100 UNITS/ML, PEN SQ-INSULIN SCH (10:30)
[2019-01-20 10:36] LABS: FREE T4 (FREE THYROXINE) 1.46 ng/dL (0.76-1.46); THYROID STIMULATING HORMONE 3.21 mIU/L (0.358-3.740)
[2019-01-20] MEDS ORDERED: ENOXAPARIN 40 MG/0.4 ML ONE (10:53)
[2019-01-20] MEDS ORDERED: PANTOPRAZOLE 40 MG IV ONE (10:54)
[2019-01-20] MEDS: INSULIN LISPRO 100 UNITS/ML, PEN SQ-INSULIN SCH ×3 (11:00→21:25)
[2019-01-20] MEDS: ENOXAPARIN 40 MG/0.4 ML SQ SCH (11:14)
[2019-01-20] MEDS ORDERED: INSULIN REGULAR 100 UNITS/ML, 3ML VIAL ONE (11:54)
[2019-01-20 12:30] LABS: TROPONIN I < 0.015 ng/mL (0.000-0.045)
--- NOTE | 2019-01-20 12:59 | NUR ---
Provided report to BOWEN Barcenas. All questions answered. Pt ready to transfer to floor from ED.
--- NOTE | 2019-01-20 14:29 | NUR ---
Pt transported to floor from ED and left with all personal belongings.
[2019-01-20] MEDS: FUROSEMIDE 20 MG/2 ML IV SCH (16:36)
[2019-01-20 16:48] LABS: TROPONIN I < 0.015 ng/mL (0.000-0.045)
[2019-01-20 20:17] VITALS: BP 111/76
[2019-01-20 20:18] VITALS: BP 116/79
[2019-01-20 20:19] VITALS: BP 79/50
[2019-01-20] MEDS: SODIUM CHLORIDE FLUSH 10ML SYR IVF SCH (21:22)
[2019-01-20] MEDS: ATORVASTATIN 10 MG TABLET PO SCH (21:25)
[2019-01-20] MEDS: AMIODARONE 200 MG TABLET PO SCH (21:25)
[2019-01-21] VITALS (10 sets, daily range): BP systolic 83–137; BP diastolic 62–86
[2019-01-21] MEDS ORDERED: METOPROLOL SUCCINATE 25 MG TAB.ER.24H PO SCH (06:00)
[2019-01-21] MEDS: METOPROLOL SUCCINATE 25 MG TAB.ER.24H PO SCH ×3 (06:06→21:01)
[2019-01-21 06:07] LABS: BASOPHILS # (AUTO) 0.03 x10^3/uL (0-0.1); BASOPHILS % (AUTO) 1 % (0-1); EOSINOPHILS # (AUTO) 0.18 x10^3/uL (0-0.4); EOSINOPHILS % (AUTO) 4 % (1-7); LYMPHOCYTES # (AUTO) 2.29 x10^3/uL (1-3.4); LYMPHOCYTES % (AUTO) 48 % (22-44); MD NO; MEAN CORPUSCULAR HEMOGLOBIN 28.1 pg (27.5-34.5); MEAN CORPUSCULAR HGB CONC 32.8 g/dL (33.2-36.2); MEAN CORPUSCULAR VOLUME 85.5 fL (81-97); MEAN PLATELET VOLUME 8.7 fL (7.4-10.4); MONOCYTES # (AUTO) 0.44 x10^3/uL (0.2-0.8); MONOCYTES % (AUTO) 9 % (2-9); NEUTROPHILS # (AUTO) 1.84 x10^3/uL (1.8-6.8); NEUTROPHILS % (AUTO) 38 % (42-75); PLATELET COUNT 239 x10^3/uL (130-400); RED BLOOD COUNT 5.12 x10^6/uL (4.38-5.82); RED CELL DISTRIBUTION WIDTH 14.8 % (9.4-14.8)
[2019-01-21 06:19] LABS: ALBUMIN 2.9 g/dL (3.4-5.0); ANION GAP 6 mmol/L (5-15); CHLORIDE 107 mmol/L (98-107)
[2019-01-21 06:24] LABS: ALANINE AMINOTRANSFERASE 17 U/L (12-78); ALKALINE PHOSPHATASE 73 U/L (45-117); BILIRUBIN,TOTAL 0.6 mg/dL (0.2-1.0); CREATININE 1.11 mg/dL (0.7-1.3); TOTAL PROTEIN 6.9 g/dL (6.4-8.2)
[2019-01-21] MEDS: INSULIN LISPRO 100 UNITS/ML, PEN SQ-INSULIN SCH ×4 (07:00→21:16)
[2019-01-21] MEDS: FUROSEMIDE 20 MG/2 ML IV SCH (07:30)
[2019-01-21 08:29] LABS: TROPONIN I < 0.015 ng/mL (0.000-0.045)
[2019-01-21] MEDS ORDERED: REGADENOSON 0.4 MG/5 ML SYRINGE ONE (08:59)
[2019-01-21] MEDS: SENNA/DOCUSATE TABLET PO SCH (12:52)
[2019-01-21] MEDS: AMIODARONE 200 MG TABLET PO SCH ×2 (12:52→21:01)
[2019-01-21] MEDS: PANTOPROZOLE 40MG TABLET PO SCH (12:52)
[2019-01-21] MEDS: SODIUM CHLORIDE FLUSH 10ML SYR IVF SCH ×2 (12:55→21:16)
[2019-01-21] MEDS: SPIRONOLACTONE 25 MG TABLET PO SCH (12:55)
[2019-01-21] MEDS: ENOXAPARIN 40 MG/0.4 ML SQ SCH (12:56)
[2019-01-21] MEDS: INSULIN GLARGINE 100 UNITS/ML, PEN SQ-INSULIN SCH (13:52)
[2019-01-21] MEDS: ATORVASTATIN 10 MG TABLET PO SCH (21:01)
[2019-01-22] MEDS ORDERED: SPIR25TA5 PO (00:09)
[2019-01-22] MEDS ORDERED: METO25TA91 PO ×2 (00:09→12:44)
[2019-01-22] MEDS ORDERED: AMIO100T4 PO (00:09)
[2019-01-22] MEDS ORDERED: FURO20TA3 PO ×2 (00:09→12:43)
[2019-01-22 02:33] VITALS: BP 116/81
[2019-01-22 03:31] LABS: AMPHETAMINE SCREEN, URINE Negative (Negative); BARBITURATE SCREEN, URINE Negative (Negative); BENZODIAZEPINE SCREEN, URINE Negative (Negative); CANNABINOID SCREEN, URINE Negative (Negative); COCAINE SCREEN, URINE Negative (Negative); METHADONE SCREEN, URINE Negative (Negative); OPIATE SCREEN, URINE Negative (Negative)
[2019-01-22 05:38] LABS: BASOPHILS # (AUTO) 0.03 x10^3/uL (0-0.1); BASOPHILS % (AUTO) 1 % (0-1); EOSINOPHILS # (AUTO) 0.22 x10^3/uL (0-0.4); EOSINOPHILS % (AUTO) 5 % (1-7); LYMPHOCYTES # (AUTO) 2.35 x10^3/uL (1-3.4); LYMPHOCYTES % (AUTO) 48 % (22-44); MD NO; MEAN CORPUSCULAR HEMOGLOBIN 27.7 pg (27.5-34.5); MEAN CORPUSCULAR HGB CONC 32.4 g/dL (33.2-36.2); MEAN CORPUSCULAR VOLUME 85.5 fL (81-97); MEAN PLATELET VOLUME 8.9 fL (7.4-10.4); MONOCYTES # (AUTO) 0.46 x10^3/uL (0.2-0.8); MONOCYTES % (AUTO) 9 % (2-9); NEUTROPHILS # (AUTO) 1.84 x10^3/uL (1.8-6.8); NEUTROPHILS % (AUTO) 38 % (42-75); PLATELET COUNT 228 x10^3/uL (130-400); RED BLOOD COUNT 5.07 x10^6/uL (4.38-5.82); RED CELL DISTRIBUTION WIDTH 14.5 % (9.4-14.8)
[2019-01-22 05:48] LABS: ALBUMIN 2.8 g/dL (3.4-5.0); ANION GAP 7 mmol/L (5-15); CALCIUM 7.9 mg/dL (8.5-10.1); CHLORIDE 107 mmol/L (98-107)
[2019-01-22 05:52] LABS: ALANINE AMINOTRANSFERASE 17 U/L (12-78); ALKALINE PHOSPHATASE 69 U/L (45-117); BILIRUBIN,TOTAL 0.5 mg/dL (0.2-1.0); CREATININE 1.11 mg/dL (0.7-1.3); TOTAL PROTEIN 6.6 g/dL (6.4-8.2)
[2019-01-22 07:46] VITALS: BP 129/84
[2019-01-22] MEDS: SENNA/DOCUSATE TABLET PO SCH (08:38)
[2019-01-22] MEDS: METOPROLOL SUCCINATE 25 MG TAB.ER.24H PO SCH (08:38)
[2019-01-22] MEDS: AMIODARONE 200 MG TABLET PO SCH (08:38)
[2019-01-22] MEDS: INSULIN GLARGINE 100 UNITS/ML, PEN SQ-INSULIN SCH (08:39)
[2019-01-22] MEDS: ENOXAPARIN 40 MG/0.4 ML SQ SCH (08:39)
[2019-01-22] MEDS: PANTOPROZOLE 40MG TABLET PO SCH (08:39)
[2019-01-22] MEDS: INSULIN LISPRO 100 UNITS/ML, PEN SQ-INSULIN SCH ×3 (08:40→16:00)
[2019-01-22] MEDS: SPIRONOLACTONE 25 MG TABLET PO SCH (08:46)
[2019-01-22] MEDS: SODIUM CHLORIDE FLUSH 10ML SYR IVF SCH (08:46)
[2019-01-22 11:30] VITALS: BP_SYST 116; BP_SYST 99; BP_DIAS 69; BP_DIAS 70; BP_DIAS 77
[2019-01-22] MEDS ORDERED: ACETAMINOPHEN 325 MG TABLET ONE (11:54)
[2019-01-22] MEDS ORDERED: ACETAMINOPHEN 325 MG TABLET PO PRN (12:00)
[2019-01-22] MEDS ORDERED: LOSA50TA14 PO (12:43)
[2019-01-22 13:00] VITALS: BP 115/80
== END 2019-01-22 18:16 | disposition home or self-care (01) | DRG 309 ==
LOC: ED 09:15 → EDIP 09:16 → ED 10:07 → 5SO 13:28
PROVIDERS: ADMIT Hospitalist; ATTEND Hospitalist
PROC: 5A2204Z Restoration of Cardiac Rhythm, Single (ICD-10-PCS; principal; 2019-01-20)
DX: I47.1 Supraventricular tachycardia (principal); E44.0 Moderate protein-calorie malnutrition; I42.9 Cardiomyopathy, unspecified; I50.30 Unspecified diastolic (congestive) heart failure; E11.65 Type 2 diabetes mellitus with hyperglycemia; E78.5 Hyperlipidemia, unspecified; N19 Unspecified kidney failure; I11.0 Hypertensive heart disease with heart failure; I95.9 Hypotension, unspecified; I25.10 Atherosclerotic heart disease of native coronary artery without angina pectoris; Z82.49 Family history of ischemic heart disease and other diseases of the circulatory system; Z86.73 Personal history of transient ischemic attack (TIA), and cerebral infarction without residual deficits; Z95.810 Presence of automatic (implantable) cardiac defibrillator; Z79.899 Other long term (current) drug therapy; Z79.82 Long term (current) use of aspirin; Z79.4 Long term (current) use of insulin; Z88.8 Allergy status to other drugs, medicaments and biological substances
CPT/HCPCS: 36415; 71045; 78452; 80048; 80053; 80307; 82040; 82962; 83735; 84100; 84439; 84443; 84484; 85025; 93005; 93017; 96372; 96374; 96375; 99291; G0378; J0153; J1650; J2785; A9502; C9113; C9898; J1815; J1940; J7030

== ENCOUNTER 2020-11-05 09:45 | Emergency (ER) | payer MEDICARE, OTHER ==
[~2020-11-05] VITALS: Ht 177.8 cm; Wt 110.0 kg
[~2020-11-05 09:45] MED LIST changes: +AMIO100T4 PO; +AMLO-211 PO; -AMLO10TA8 PO; +ASPI-496 PO; +LOSA50TA14 PO; -NITR0.4T SL; +NITR0.4T41 SL; +NITR12SP10 SL; -NITR12SP2 SL; -PANT20TA3 PO; +PANT20TA4 PO; -PANT40TA5 PO; +PANT40TA6 PO; +SPIR25TA5 PO
--- NOTE | 2020-11-05 10:20 | NUR ---
assumed care of pt. Sabra ONEAL at bedside for eval pt presents ambulatory from triage with SO c/o feeling weak and off balance. pt REYES without difficutly and has no facial droop. answers all questions and folows all commands. PERRLA. denies HERRERA or dizziness at this time. denies CP or SOB pt admits to using speed regularly and when asked if he drinks ETOH, he states "not like I used to". pt states that he has been "seeing worms" come out of his body when he is in bed or after a shower. pt SO at bedside states same and states that they have been staying in motels for the last week because they think that their home has mold. pt has no open wounds on his body upon inspection and no worms seen by this RN. pt has a small abrasion to the L side of his neck, no s/sx of infection
--- NOTE | 2020-11-05 10:30 | NUR ---
pt aware that urine sample needed. urinal at bedside
--- NOTE | 2020-11-05 11:16 | NUR ---
pt has not yet provided urine sample
[2020-11-05 11:22] LABS: BASOPHILS % (AUTO) 1 % (0-1); EOSINOPHILS % (AUTO) 4 % (1-7); LYMPHOCYTES % (AUTO) 30 % (22-44); MEAN CORPUSCULAR HEMOGLOBIN 28.6 pg (27.5-34.5); MEAN CORPUSCULAR HGB CONC 32.4 g/dL (33.2-36.2); MEAN PLATELET VOLUME 9.4 fL (7.4-10.4); MONOCYTES % (AUTO) 12 % (2-9); NEUTROPHILS % (AUTO) 54 % (42-75); PLATELET COUNT 148 x10^3/uL (130-400); RED BLOOD COUNT 5.17 x10^6/uL (4.38-5.82); RED CELL DISTRIBUTION WIDTH 14.2 % (9.4-14.8)
[2020-11-05 11:28] LABS: MD NO
[2020-11-05 11:30] LABS: ALANINE AMINOTRANSFERASE 30 U/L (12-78); ALBUMIN 3.3 g/dL (3.4-5.0); ANION GAP 3 mmol/L (5-15); CHLORIDE 106 mmol/L (98-107); CREATININE 1.15 mg/dL (0.7-1.3)
--- NOTE | 2020-11-05 11:30 | NUR ---
pt sleeping. easily aroused
[2020-11-05 11:32] LABS: ALKALINE PHOSPHATASE 86 U/L (45-117); BILIRUBIN,TOTAL 0.7 mg/dL (0.2-1.0); TOTAL PROTEIN 7.8 g/dL (6.4-8.2)
--- NOTE | 2020-11-05 11:35 | NUR ---
pt has been medicated. urine sample collected and sent
[2020-11-05 12:19] LABS: AMPHETAMINE SCREEN, URINE Positive (Negative); BARBITURATE SCREEN, URINE Negative (Negative); BENZODIAZEPINE SCREEN, URINE Negative (Negative); CANNABINOID SCREEN, URINE Negative (Negative); COCAINE SCREEN, URINE Negative (Negative); METHADONE SCREEN, URINE Negative (Negative); OPIATE SCREEN, URINE Negative (Negative)
--- NOTE | 2020-11-05 12:41 | NUR ---
Dr Valdez has been to bedside for receck. pt SO has been picking at her skin as wll as his with tweezers. pt SO has been repeatedly searching through supplies in the room and washing her feet int he sink and continually wiping his skin with we and dry paper towels pt has bene dozing intemitently. pt and SO nowwant o discuss mold in their home and how to test for it. pt has had no worms or bugs seen on his skin. pt is picking at his skin. pt continues to deny HERRERA dizziness or loss or change of vision. pt is hypertensive. no facila droop noted
[2020-11-05 12:46] VITALS: BP 189/115
--- NOTE | 2020-11-05 12:59 | NUR ---
repot to Casie WISEMAN for lunch
--- NOTE | 2020-11-05 13:15 | NUR ---
BREAK RN NOTE: DC ORDER RECEIVED. EDMD SAHM NOTIFIED LAST BP WAS 189/115, EDMD OK'D DC. WHEN THIS RN WENT TO GIVE PT DC PAPERWORK AND EDUCATION, PT NOT FOUND IN ROOM. PT NOT SEEN IN DEPARTMENT, LEFT WITHOUT DC PAPERWORK OR EDUCATION.
--- NOTE | 2020-11-05 13:41 | NUR ---
this pt was D/C by another RN
== END 2020-11-05 13:16 | disposition home or self-care (01) ==
LOC: ED 10:27
DX: E11.65 Type 2 diabetes mellitus with hyperglycemia (principal); I11.0 Hypertensive heart disease with heart failure; I50.9 Heart failure, unspecified; R53.1 Weakness; R53.83 Other fatigue
CPT/HCPCS: 36415; 80053; 80307; 85025; 93005; 99285

== ENCOUNTER 2021-05-31 08:40 | Emergency (ER) | payer OTHER ==
[~2021-05-31] VITALS: Ht 185.4 cm; Wt 105.0 kg
[~2021-05-31 08:40] MED LIST changes: +SERT-331 PO; -SERT25TA3 PO
[2021-05-31] MEDS ORDERED: EPINEPHRINE SYRINGE 0.1 MG/ML, 10ML ONE (08:51)
[2021-05-31] MEDS ORDERED: ADENOSINE 6 MG/2 ML ONE (08:51)
[2021-05-31 08:54] VITALS: BP 105/71
[2021-05-31] MEDS ORDERED: ADENOSINE 6 MG/2 ML IVPush ONE (09:00)
[2021-05-31] MEDS ORDERED: SODIUM CHLORIDE FLUSH 10ML SYR IVF ONE (09:00)
[2021-05-31] MEDS ORDERED: SODIUM CHLORIDE 0.9% 1,000ML IVBOLUS ONE (09:00)
--- NOTE | 2021-05-31 09:15 | NUR ---
REPORT FROM KIMBERLEE. PT WAS IN SVT W LOW BP, CONVERTED AFTER ADENOSINE TO NSR. BP APPROPIATE. PT NOW A&OX4. DENIES CP OR SOB. GIVEN WARM BLANKETS. PT UNCOOPERATIVE W RECTAL TEMP. ATTEMPTED ORAL, BUT PT ALSO UNCOOPERATIVE W THAT. LAB AT BEDSIDE. IV AND FLUIDS INFUSING. PT POOR HISTORIAN
--- NOTE | 2021-05-31 09:21 | NUR ---
PT REFUSING LABS. [facility]
[2021-05-31 09:34] LABS: BASOPHILS % (AUTO) 1 % (0-1); EOSINOPHILS % (AUTO) 2 % (1-7); LYMPHOCYTES % (AUTO) 44 % (22-44); MEAN CORPUSCULAR HEMOGLOBIN 28.6 pg (27.5-34.5); MEAN CORPUSCULAR HGB CONC 31.9 g/dL (33.2-36.2); MEAN PLATELET VOLUME 9.9 fL (7.4-10.4); MONOCYTES % (AUTO) 12 % (2-9); NEUTROPHILS % (AUTO) 42 % (42-75); PLATELET COUNT 155 x10^3/uL (130-400); RED BLOOD COUNT 5.46 x10^6/uL (4.38-5.82); RED CELL DISTRIBUTION WIDTH 14.7 % (9.4-14.8)
[2021-05-31 09:39] LABS: ALBUMIN 3.2 g/dL (3.4-5.0); ANION GAP 5 mmol/L (5-15); CALCIUM 8.7 mg/dL (8.5-10.1); CHLORIDE 111 mmol/L (98-107)
[2021-05-31 09:41] LABS: ALANINE AMINOTRANSFERASE 32 U/L (12-78); ALKALINE PHOSPHATASE 72 U/L (45-117); BILIRUBIN,TOTAL 0.7 mg/dL (0.2-1.0); CREATININE 1.55 mg/dL (0.7-1.3); TOTAL PROTEIN 7.4 g/dL (6.4-8.2); TROPONIN I < 0.015 ng/mL (0.000-0.045)
--- NOTE | 2021-05-31 10:03 | NUR ---
PAT REFUSING CT EXAM
--- NOTE | 2021-05-31 10:21 | NUR ---
pt refusing further care. AMA paper signed by pt, educated pt about further care. aware. pt dc w steady gait. piv removed
== END 2021-05-31 10:25 | disposition left against medical advice (07) ==
LOC: ED 10:22
DX: R41.82 Altered mental status, unspecified (principal); G30.0 Alzheimer's disease with early onset; F02.80 Dementia in other diseases classified elsewhere, unspecified severity, without behavioral disturbance, psychotic disturbance, mood disturbance, and anxiety; I47.1 Supraventricular tachycardia; E11.9 Type 2 diabetes mellitus without complications; I11.0 Hypertensive heart disease with heart failure; I50.9 Heart failure, unspecified; I25.10 Atherosclerotic heart disease of native coronary artery without angina pectoris; I95.9 Hypotension, unspecified
CPT/HCPCS: 36600; 71045; 80053; 80320; 83735; 83880; 84484; 85025; 93005; 96361; 96374; 99285; J0153; J7030; G0480

== ENCOUNTER 2021-06-21 13:53 | Emergency (ER) | payer OTHER ==
[~2021-06-21] VITALS: Ht 177.8 cm; Wt 100.0 kg
--- NOTE | 2021-06-21 14:03 | NUR ---
Reji pace in [facility] - 06/21/21 at 1428 by JARED TORIN BONILLA
[2021-06-21 14:09] VITALS: BP 97/66
--- NOTE | 2021-06-21 14:13 | NUR ---
CALLUM STAUFFER. SPOUSE STATES PT HAD AMS X30 MINUTES. PT A&OX4 NOW. FSBG 447, HX DM2, NOT TAKING MEDS. PT CONNECTED TO MONITORING. FALL PRECAUTIONS IN PLACE. CALL LIGHT IN REACH. PT SPOUSE AT BEDSIDE. REPORT TO PRIMARY RN, DENIS WISEMAN,
[2021-06-21] MEDS ORDERED: SODIUM CHLORIDE 0.9% 1,000ML IVBOLUS ONE (14:30)
[2021-06-21] MEDS ORDERED: SODIUM CHLORIDE FLUSH 10ML SYR IVF ONE (14:30)
--- NOTE | 2021-06-21 14:49 | NUR ---
PT REFUSING IV
--- NOTE | 2021-06-21 15:08 | NUR ---
PT WANTED AMA PAPERS AND TO LEAVE. PT REFUSING TREATMENT. PT GIRLFRIEND SAID SHE WILL TAKE HIM HOME AND CARE FOR HIM. PT SIGNED PAPERWORK
== END 2021-06-21 14:04 | disposition left against medical advice (07) ==
LOC: ED 13:58
DX: R41.82 Altered mental status, unspecified (principal); E11.65 Type 2 diabetes mellitus with hyperglycemia; R94.31 Abnormal electrocardiogram [ECG] [EKG]; R07.89 Other chest pain; Z72.9 Problem related to lifestyle, unspecified; I11.0 Hypertensive heart disease with heart failure; I50.9 Heart failure, unspecified; I25.10 Atherosclerotic heart disease of native coronary artery without angina pectoris
CPT/HCPCS: 71045; 93005; 99283